=== PATIENT | male | born 1950 | race Caucasian/White ===

== ENCOUNTER → 2017-01-25 | Outpatient (CLI) | payer OTHER | LOC: BHLMT 11:30 | PROVIDERS: ATTEND Internal Medicine | DX: I35.8 Other nonrheumatic aortic valve disorders (principal) | CPT/HCPCS: 93306-PO ==

== ENCOUNTER → 2017-02-08 | Outpatient (CLI) | payer OTHER | LOC: BHFA 15:00 | PROVIDERS: ATTEND Internal Medicine Cardiovascular Disease | DX: Q23.1 Congenital insufficiency of aortic valve (principal); Q25.1 Coarctation of aorta; R94.31 Abnormal electrocardiogram [ECG] [EKG] | CPT/HCPCS: 93005-PO ==